=== PATIENT | female | born 1950 | race Caucasian/White ===

== ENCOUNTER 2021-11-06 17:11 | Emergency (ER) | payer MEDICARE ==
[~2021-11-06] VITALS: Ht 162.6 cm; Wt 91.8 kg
[2021-11-06 18:33] LABS: BASOPHILS % (AUTO) 0.2 % (0-1); EOSINOPHILS # (AUTO) 0.1 X10'3 (0-0.9); EOSINOPHILS % (AUTO) 0.4 % (0-6); HEMATOCRIT 39.8 % (35.0-45.0); HEMOGLOBIN 13.3 g/dl (12.0-16.0); LYMPHOCYTES # (AUTO) 1.2 X10'3 (1.1-4.8); LYMPHOCYTES % (AUTO) 7.3 % (21-51); MEAN CORPUSCULAR HEMOGLOBIN 29.7 PG (27.0-31.0); MEAN CORPUSCULAR HGB CONC 33.5 g/dL (33.0-36.5); MEAN CORPUSCULAR VOLUME 88.7 FL (78-98); MEAN PLATELET VOLUME 7.7 FL (7.4-10.4); MONOCYTES # (AUTO) 1.8 X10'3 (0-0.9); MONOCYTES % (AUTO) 11.4 % (2-12); NEUTROPHILS # (AUTO) 12.8 X10'3 (1.8-7.7); NEUTROPHILS % (AUTO) 80.7 % (42-75); PLATELET COUNT 360 X10'3 (140-440); RED BLOOD COUNT 4.49 X10'6 (4.20-5.60); RED CELL DISTRIBUTION WIDTH 13.9 % (11.5-14.5); WHITE BLOOD COUNT 15.9 X10'3 (4.5-11.0)
[2021-11-06 18:47] LABS: ALANINE AMINOTRANSFERASE 24 U/L (12-78); ALBUMIN 3.9 G/DL (3.4-5.0); ALKALINE PHOSPHATASE 82 IU/L (46-116); ANION GAP 9 (8-16); ASPARTATE AMINO TRANSFERASE 19 U/L (10-37); BILIRUBIN,TOTAL 0.6 MG/DL (0.1-1.0); BLOOD UREA NITROGEN 35 MG/DL (7-18); BUN/CREATININE RATIO 37.2 (6.6-38.0); CALCIUM 9.4 MG/DL (8.5-10.1); CHLORIDE 94 MMOL/L (99-107); CREATININE 0.94 MG/DL (0.40-0.90); GLUCOSE 139 MG/DL (70-104); POTASSIUM 4.4 MMOL/L (3.5-5.1); SODIUM 127 MMOL/L (135-145); TOTAL CARBON DIOXIDE 24.4 MMOL/L (24-32); eGFR 58 ML/MIN
[2021-11-06] MEDS ORDERED: METF-900 PO (23:11)
[2021-11-06] MEDS ORDERED: ATEN-169 PO (23:11)
[2021-11-06] MEDS ORDERED: ROSU40TA PO (23:11)
[2021-11-06] MEDS ORDERED: SPIR25TA5 PO (23:11)
[2021-11-06] MEDS ORDERED: TRAZ-251 PO (23:11)
[2021-11-06] MEDS ORDERED: AMLO10TA48 PO (23:11)
[2021-11-06] MEDS ORDERED: LOSA100T3 PO (23:11)
[2021-11-06] MEDS ORDERED: ANAS1TAB10 PO (23:11)
[2021-11-06] MEDS ORDERED: HYDR25TA5 PO (23:11)
--- NOTE | 2021-11-06 23:13 | NUR ---
PT C/O MIDSTERNAL CHEST PAIN, INCREASES WITH TAKING DEEP BREATHE, 7-10/10, TALKING FULL SENTENCES, NO RESP DISTRESS, SKIN P/W/D, STARTED SPIROLACTONE 4 DAYS AGO
[2021-11-06 23:19] LABS: D-DIMER 0.94 MG/L FEU (0-0.50)
[2021-11-06] MEDS ORDERED: iohexol 350MG/ML 100ml bottle IV ONE (23:45)
[2021-11-07] MEDS ORDERED: iohexol 350MG/ML 100ml bottle IV ONE (01:40)
[2021-11-07] MEDS ORDERED: morphine 4 MG/ML inj SYRINge IM ONE (03:50)
[2021-11-07] MEDS ORDERED: ketorolac trometh. 30mg/ml inj. IV ONE (04:50)
[2021-11-07 05:58] VITALS: BP 146/66
== END 2021-11-07 06:10 | disposition home or self-care (01) ==
LOC: ER 17:12
DX: R09.1 Pleurisy (principal); I25.2 Old myocardial infarction; I50.9 Heart failure, unspecified; Z85.3 Personal history of malignant neoplasm of breast; Z88.8 Allergy status to other drugs, medicaments and biological substances; Z91.018 Allergy to other foods; Z79.899 Other long term (current) drug therapy; Z79.84 Long term (current) use of oral hypoglycemic drugs
CPT/HCPCS: 36415; 71045; 71275; 80053; 83880; 84484; 85025; 85379; 93005; 96374; 99285; J1885; Q9967